=== PATIENT | male | born 1960 | race Caucasian/White ===

== ENCOUNTER 2024-07-20 05:24 | Observation (INO) | payer MEDICARE, BC ==
[2024-07-18 15:07] LABS: BASOPHILS % 0.7 % (0.0-1.0); EOSINOPHILS # (AUTO) 0.2 (0.0-0.4); EOSINOPHILS % 2.9 % (0.0-6.0); HEMATOCRIT 52.7 % (38.2-49.6); HEMOGLOBIN 16.9 g/dL (14.0-18.0); LYMPHOCYTES # (AUTO) 1.7 (1.0-3.2); LYMPHOCYTES % 31.2 % (18.0-39.1); MEAN CORPUSCULAR HEMOGLOBIN 30.7 pg (28-32); MEAN CORPUSCULAR HGB CONC 32.1 g/dL (31-35); MEAN CORPUSCULAR VOLUME 95.6 fL (81-99); MONOCYTES # (AUTO) 0.6 (0.2-0.8); MONOCYTES % 11.6 % (4.4-11.3); NEUTROPHILS # (AUTO) 2.9 (2.1-6.9); NEUTROPHILS % 53.2 % (38.7-80.0); PLATELET COUNT 213 x10e3/uL (140-360); RED BLOOD COUNT 5.51 x10e6/uL (4.3-5.7); RED CELL DISTRIBUTION WIDTH 13.9 % (11.7-14.4); WHITE BLOOD COUNT 5.52 x10e3/uL (4.8-10.8)
[2024-07-18 15:16] LABS: INR 0.93; PROTHROMBIN TIME 12.9 seconds (11.9-14.5)
[2024-07-18 15:17] LABS: PARTIAL THROMBOPLASTIN TIME 25.5 seconds (23.8-35.5)
[2024-07-18 15:23] LABS: ANION GAP 16.1 mmol/L (8-16); CALCIUM 9.8 mg/dL (8.4-10.2); CREATININE, SERUM 0.78 mg/dL (0.72-1.25); POTASSIUM 4.1 mmol/L (3.5-5.1)
[~2024-07-20] VITALS: Ht 172.7 cm; Wt 90.7 kg
[~2024-07-20 05:24] MED LIST: MULTI-VITAMIN1 EACH PO; PROSCAR5 MG PO
[2024-07-20] MEDS ORDERED: THROMBIN FOR SOLN 5,000 UNIT VIAL ONE (06:37)
[2024-07-20] MEDS ORDERED: Vancomycin IV 1 GM VIAL ONE (06:37)
[2024-07-20] MEDS ORDERED: BUPIVACAINE 0.5%/EPI 30 ML SDV INJ ONE (06:37)
[2024-07-20] MEDS: LACTATED RINGER'S 1,000 ML ONE (06:45)
[2024-07-20] MEDS ORDERED: ROCURONIUM BROMIDE 10 MG/ML 5ML VIAL IV ONE (09:46)
[2024-07-20] MEDS ORDERED: ONDANSETRON HCL INJ 2MG/ML 2ML 2 MG/ML VIAL ONE (09:46)
[2024-07-20] MEDS ORDERED: PROPOFOL IV EMULSION 10 MG/ML 20 ML VIAL ONE (09:46)
[2024-07-20] MEDS ORDERED: SUGAMMADEX SODIUM 200 MG/2 ML VIAL IV ONE (09:46)
[2024-07-20] MEDS ORDERED: ACETAMINOPHEN 1000 MG/100 ML IV ONE (09:46)
[2024-07-20] MEDS ORDERED: DEXAMETHASONE SOD PHOS 10 MG/1 ML VIAL ONE (09:46)
[2024-07-20] MEDS ORDERED: LIDOCAINE HCL 2% LOCAL INJ 5 ML SDV VIAL INJ ONE (09:46)
[2024-07-20] MEDS ORDERED: SEVOFLURANE INHAL SOLN 250 ML PEN BTL ONE (09:46)
[2024-07-20] MEDS ORDERED: HYDROCODON-ACE1 EA12 PO (09:48)
[2024-07-20] MEDS ORDERED: ACETAMINOPHEN 325 MG TAB PO PRN (10:00)
[2024-07-20] MEDS ORDERED: MORPHINE SULFATE 5 MG/ML VIAL IM PRN (10:00)
[2024-07-20] MEDS ORDERED: PROMETHAZINE HCL (IM) 25 MG/ML VIAL IM PRN (10:00)
[2024-07-20] MEDS ORDERED: CARISOPRODOL 350 MG TAB PO PRN (10:00)
[2024-07-20] MEDS ORDERED: MAGNESIUM/ALUMINUM/SIMETHICONE 30 ML UDC PO PRN (10:00)
[2024-07-20] MEDS: OXYCODONE/ACETAMINOPHEN 5-325 1 EACH TABLET PO PRN (10:30)
[2024-07-20 11:00] VITALS: BP 145/99; PULSE 64; RESP 20; TEMP 97.7; O2SAT 100
[2024-07-20 12:14] VITALS: BP 151/90; PULSE 68; RESP 18; TEMP 97.4; O2SAT 98
[2024-07-20] MEDS: LACTATED RINGER'S 1,000 ML IV SCH (14:04)
[2024-07-20 16:00] VITALS: BP 140/92; PULSE 91; RESP 19; TEMP 97.7; O2SAT 98
[2024-07-20] MEDS ORDERED: FENTANYL CITRATE/PF 100MCG/2 ML INJ ONE (18:33)
[2024-07-20] MEDS ORDERED: MIDAZOLAM HCL 2 MG/2 ML VIAL ONE (18:33)
[2024-07-20 20:00] VITALS: BP 142/91; PULSE 72; RESP 21; TEMP 98.4; O2SAT 100
[2024-07-20] MEDS: CEFAZOLIN SODIUM 2 GM ONE (20:59)
[2024-07-20] MEDS: HYDROMORPHONE 2MG/ML IV PRN (21:02)
[2024-07-20] MEDS: ONDANSETRON HCL INJ 2MG/ML 2ML 2 MG/ML VIAL IV PRN (21:02)
[2024-07-20] MEDS: ZOLPIDEM TARTRATE 5 MG TAB PO PRN (21:02)
[2024-07-21] VITALS: BP 121/78; PULSE 71; RESP 20; TEMP 97.8; O2SAT 98
[2024-07-21 04:00] VITALS: BP 128/88; PULSE 70; RESP 18; TEMP 98.3; O2SAT 100
[2024-07-21 08:00] VITALS: BP 128/88; PULSE 70; RESP 18; TEMP 98.3; O2SAT 100
[2024-07-21 08:05] VITALS: BP 133/83; PULSE 77; RESP 17; TEMP 98.3; O2SAT 100
[2024-07-21] MEDS: FINASTERIDE 5 MG TAB PO SCH (09:06)
[2024-07-21] MEDS: MULTIVITAMINS/MINERALS TAB PO SCH (09:06)
== END 2024-07-21 10:07 | disposition home or self-care (01) ==
LOC: OR 05:24 → PACU V 09:46 → MED/SURG 10:46
PROVIDERS: ADMIT Neurological Surgery; ATTEND Neurological Surgery
DX: M48.062 Spinal stenosis, lumbar region with neurogenic claudication (principal); M51.26 Other intervertebral disc displacement, lumbar region; Z98.1 Arthrodesis status; E66.01 Morbid (severe) obesity due to excess calories; Z68.30 Body mass index [BMI] 30.0-30.9, adult; Z01.810 Encounter for preprocedural cardiovascular examination; Z01.812 Encounter for preprocedural laboratory examination; Z01.818 Encounter for other preprocedural examination
CPT/HCPCS: 36415; 63047; 63048; 71046; 72020; 80048; 85025; 85610; 85730; 86850; 86900; 88304; 88311; 93005; G0378 ×2; J0131; J0690 ×3; J1100; J1170; J2003; J2250; J2405; J2704; J3010; J3370; J7121